=== PATIENT | female | born 1985 | race African-American/Black ===

== ENCOUNTER → 2017-10-20 | Outpatient (CLI) | payer OTHER ==
[~2017-10-20] MED LIST: ACETAMINOPHEN-1 EAC1 PO; BACTRIM DS TAB1 EACH PO; DIABETA 1.25M1.25 M1; GLUCOTROL; METFORMIN 500500 MG PO; NORCO 5-325 TA1 EACH PO; VICODIN 5-5001 EACH PO
== END ==
LOC: ULTRA 12:35
DX: M79.89 Other specified soft tissue disorders (principal); R22.42 Localized swelling, mass and lump, left lower limb

== ENCOUNTER → 2018-07-27 | Outpatient (CLI) | payer OTHER | LOC: RAD 13:54 | DX: L40.0 Psoriasis vulgaris (principal); J98.4 Other disorders of lung; Z79.899 Other long term (current) drug therapy ==

== ENCOUNTER → 2019-11-24 | Outpatient (CLI) | payer OTHER | LOC: RAD 10:36 | PROVIDERS: ATTEND Physician Assistant | DX: Z79.899 Other long term (current) drug therapy (principal); L40.0 Psoriasis vulgaris ==